=== PATIENT | female | born 1965 | race Two or more races ===

== ENCOUNTER 2024-08-11 08:53 | Day surgery (SDC) | payer MEDICAID ==
[2024-08-08 12:51] LABS: Basophils # (auto) 0 10 ^3/uL (0-0.2); Basophils % (auto) 0.5 % (0.0-2.0); Eosinophils # (auto) 0.1 10 ^3/uL (0-0.8); Eosinophils % (auto) 0.8 % (0.0-7.0); Hematocrit 37.8 % (36.0-46.0); Hemoglobin 12.9 g/dL (12.2-16.2); Lymphocytes % (auto) 33.1 % (10.0-50.0); Mean Corpuscular Hemoglobin 31.4 pg (28.0-32.0); Mean Corpuscular Hgb Conc. 34.2 g/dL (32.0-36.0); Mean Corpuscular Volume 91.9 fL (80.0-100.0); Monocytes # (auto) 0.5 10 ^3/uL (0-1.3); Monocytes % (auto) 5.3 % (0.0-12.0); Neutrophils # (auto) 5.4 10 ^3/uL (1.6-8.6); Neutrophils % (auto) 60.3 % (37.0-80.0); Platelet Count (auto) 247 10^3/uL (140-450); Red Blood Cells 4.12 10^6/uL (4.0-5.20); Red Cell Distribution Width 14.4 % (11.8-14.3); White Blood Cell 8.9 10^3/uL (4.4-10.8)
[2024-08-08 12:56] LABS: Urine Bacteria FEW /hpf (None Seen); Urine Blood Negative /uL (Negative); Urine Clarity Turbid (Clear); Urine Color Yellow (Yellow); Urine Hyaline Cast FEW /lpf (0 - 2); Urine Mucus FEW (None Seen); Urine Protein, UAD 1+ (Negative); Urine Specific Gravity 1.032 (1.001-1.035); Urine Urobilinogen 6 mg/dL (Negative); Urine WBC 9 /hpf (0 - 5); Urine pH 5.5 (5.0-9.0)
[2024-08-08 13:04] LABS: INR 1.18 (0.9-1.15); Partial Thromboplastin Time 30.5 SEC (24.5-34.5); Prothrombin Time 12.4 sec (9.3-11.8)
[2024-08-08 13:39] LABS: Alanine Aminotransferase 14 U/L (7-40); Albumin 4.2 g/dL (3.2-4.8); Alkaline Phosphatase 48 U/L (46-116); Anion Gap 3 (5-15); Aspartate Aminotransferase 13 U/L (13-40); BUN/Creatinine Ratio 23.3 (10.0-20.0); Bilirubin, Total 0.5 mg/dL (0.2-1.0); Blood Urea Nitrogen 21 mg/dL (9-23); Calcium 10.1 mg/dL (8.7-10.4); Carbon Dioxide 30 mmol/L (20-31); Chloride 107 mmol/L (98-107); Potassium 4.6 mmol/L (3.5-5.1); Sodium 140 mmol/L (136-145); Total Protein 6.3 g/dL (5.7-8.2)
[2024-08-08 13:41] LABS: Glucose 135 mg/dL (74-106)
[~2024-08-11] VITALS: Ht 157.5 cm; Wt 78.5 kg
[~2024-08-11 08:53] MED LIST: APIX2.5T PO; ATOR40TA52 PO; DIVA-91 PO; DULO1CAP6 PO; FURO1TAB33 PO; LEVO25CA3 PO; METO25TA93 PO; SEMA14TA2 PO; SITA50TA PO; TIRZ15IN SC; TIRZ5INJ SC
[2024-08-11] MEDS ORDERED: PROPOFOL 10 MG/ML 20 ML IV ONE ×2 (11:04→11:35)
[2024-08-11] MEDS ORDERED: LIDOCAINE 2% (LOCAL ANESTH.) PF 5ml SDV ONE (11:04)
[2024-08-11] MEDS ORDERED: ePHEDrine SULFATE 50 MG/ML AMP ONE (11:35)
[2024-08-11] MEDS ORDERED: PHENYLEPHRINE HCL 10 MG/ML VL ONE (11:53)
[2024-08-11] MEDS ORDERED: SODIUM CHLORIDE LOCK 10 ML ONE (11:53)
[2024-08-11 12:04] VITALS: PULSE 73; RESP 14; O2SAT 99
[2024-08-11 12:05] VITALS: TEMP 98.2
--- NOTE | 2024-08-11 12:27 | DVHOP2 ---
Operative Report DATE OF OPERATION: 08/11/24 PROCEDURE: Upper Endoscopy with biopsy. PREOPERATIVE INDICATION: The patient is a 59 -year-old female undergoing endoscopy for re-evaluation of anastomotic ulcer POSTOPERATIVE DIAGNOSES: 1. Patient had complete resolution and healing of her gastrojejunal anastomotic ulcer 2. Patient has a gastric bypass with Billroth II gastrojejunostomy and normal efferent and afferent loop 3. Mild gastritis of the small gastric remnant 4. 2 cm sliding-type hiatal hernia with slightly irregular squamocolumnar junction PROCEDURE PERFORMED BY: Wili Diop GI NURSE: Carlotta SCOPE: Olympus videoendoscope. ASA CLASS: 3. PREOPERATIVE MEDICATIONS: Mac sedation Tarik Alvarenga PROCEDURE IN DETAIL: After obtaining an informed consent, the patient was placed on left lateral decubitus position. The patient was then sedated with the above medications. A bite block was placed between her teeth. The endoscope was then passed through the oropharynx, into the esophagus, and through the stomach remnant into the efferent and afferent loop of the gastrojejunostomy. Both the efferent afferent loops were normal. The anastomosis was normal with no residual anastomotic ulcer. There was no bleeding. Patient had a small gastric remnant which showed mild gastritis with some hyperemia erythema. Gastric biopsies were obtained. Patient had a 2 cm sliding-type hiatal hernia with slightly irregular squamocolumnar junction otherwise normal esophagus and oropharynx The endoscope was then withdrawn. The patient tolerated the procedure well without difficulty. COMPLICATIONS : None SPECIMENS: Gastric biopsies DISPOSITION: Stable D/C to home PLAN: 1. Await for biopsy result 2. Continue Protonix 40 mg p.o. daily 3. Resume GI soft diet advance as tolerated 4. Outpatient follow up with me in 4-6 weeks to review results and discuss further management 5. Avoid aspirin and NSAIDs and dietary modifications for GERD WILI DIOP MD Aug 11, 2024 12:27
[2024-08-11 12:35] VITALS: BP 101/60; PULSE 66; RESP 15; O2SAT 98
--- NOTE | 2024-08-11 13:13 | DVHOP2 ---
Operative Report DATE OF OPERATION: 08/11/24 PROCEDURE: Colonoscopy with snare polypectomy. PREOPERATIVE INDICATION: The patient is a 59 -year-old female undergoing colonoscopy for surveillance with personal history of colon polyps and poor prep on last examination POSTOPERATIVE DIAGNOSES: 1. 1.5 cm benign-appearing descending colon polyp was seen and removed by snare polypectomy and the specimens were retrieved 2. There were three less than 1 cm benign-appearing rectosigmoid polyps that were seen and removed by snare polypectomy and the specimens were retrieved 3. Mild tortuosity of the colon and a slightly limited study due to poor prep however after careful irrigation aspiration no other gross lesions were seen PROCEDURE PERFORMED BY: Wili Mijares M.D. SCOPE: Olympus videocolonoscope. ASA CLASS: 3. PREOPERATIVE MEDICATIONS: Vidal howard, Tarik Alvarenga PROCEDURE IN DETAIL: After obtaining an informed consent, the patient was placed on left lateral decubitus position. She was then sedated with the above medications. A rectal examination was performed that was normal. The colonoscope was then passed through the anus into the rectosigmoid and through the descending, transverse, and ascending colon up to the cecum with visualization of the appendiceal orifice, base of the cecum and the ileocecal valve. The colonoscope was then withdrawn. No masses or colitis was noted. The patient's study was somewhat limited due to poor prep with some thick liquid stool in her colon. However care after careful irrigation aspiration no gross lesion was seen. Patient had mild tortuosity of the colon In the proximal descending colon there was a 1-1.5 cm benign-appearing polyp that was seen and removed by snare polypectomy In the rectosigmoid there were three less than 1 cm benign-appearing polyps were seen and removed by snare polypectomy and the specimens were retrieved On retroflexion and straight on view she had trace internal hemorrhoids. The patient tolerated the procedure well without difficulty. WITHDRAWAL TIME: 14 minutes QUALITY OF THE PREP: [place] Bowel Prep score: 7. COMPLICATIONS : None SPECIMENS: Descending colon polyp Rectosigmoid polyps DISPOSITION: Stable D/C to home PLAN: 1. Repeat colonoscopy base on biopsy result likely in 3-5 years 2. Resume GI soft diet advance as tolerated 3. Hold blood thinners for 3-4days 4. Outpatient follow up with me in 4-6 weeks to review results and discuss further management WILI MIJARES MD Aug 11, 2024 13:13
== END 2024-08-11 12:57 | disposition home or self-care (01) ==
LOC: SUR 08:53
PROVIDERS: ATTEND Internal Medicine Gastroenterology
DX: Z09 Encounter for follow-up examination after completed treatment for conditions other than malignant neoplasm (principal); K29.50 Unspecified chronic gastritis without bleeding; D12.4 Benign neoplasm of descending colon; K63.89 Other specified diseases of intestine; K64.8 Other hemorrhoids; K44.9 Diaphragmatic hernia without obstruction or gangrene; I10 Essential (primary) hypertension; E11.9 Type 2 diabetes mellitus without complications; E66.3 Overweight; I25.2 Old myocardial infarction; E03.9 Hypothyroidism, unspecified; Z98.0 Intestinal bypass and anastomosis status; Z98.891 History of uterine scar from previous surgery; Z88.2 Allergy status to sulfonamides; Z98.84 Bariatric surgery status; Z86.2 Personal history of diseases of the blood and blood-forming organs and certain disorders involving the immune mechanism; Z95.5 Presence of coronary angioplasty implant and graft; Z79.890 Hormone replacement therapy; Z87.891 Personal history of nicotine dependence; Z79.899 Other long term (current) drug therapy; Z87.11 Personal history of peptic ulcer disease
CPT/HCPCS: 36415; 43239; 45385; 80053; 81001; 82962; 85025; 85610; 85730; 88305; 88312; 88342; J2003; J2371; J2704; J7030